=== PATIENT | female | born 2000 | race Two or more races ===

== ENCOUNTER 2022-04-26 21:57 | Emergency (ER) | payer OTHER ==
[~2022-04-26] VITALS: Ht 162.6 cm; Wt 58.2 kg
[2022-04-26 22:55] LABS: Urine Bacteria FEW /hpf (None Seen); Urine Blood Negative /uL (Negative); Urine Specific Gravity 1.005 (1.001-1.035); Urine WBC 2 /hpf (0 - 5)
[2022-04-27] MEDS ORDERED: METR500T PO ×2 (03:06→03:37)
[2022-04-27] MEDS ORDERED: PERCOT PO ×2 (03:06→03:37)
[2022-04-27] MEDS ORDERED: CIPR-173 PO ×2 (03:06→03:37)
[2022-04-27 03:39] VITALS: BP 100/63
[2022-04-28] MEDS ORDERED: ONDA-144 PO (09:55)
[2022-04-28] MEDS ORDERED: METR500T PO (09:55)
[2022-04-28] MEDS ORDERED: CEPH-509 PO (09:55)
== END 2022-04-27 03:46 | disposition home or self-care (01) ==
LOC: ER 21:57
DX: K52.9 Noninfective gastroenteritis and colitis, unspecified (principal)
CPT/HCPCS: 74176; 81001

== ENCOUNTER 2022-04-28 07:00 | Emergency (ER) | payer OTHER ==
[~2022-04-28] VITALS: Ht 162.6 cm; Wt 56.0 kg
[~2022-04-28 07:00] MED LIST: CIPR-173 PO; METR500T PO; PERCOT PO
[2022-04-28 08:07] LABS: Basophils # (auto) 0 10 ^3/uL (0-0.2); Basophils % (auto) 0.2 % (0.0-2.0); Eosinophils # (auto) 0 10 ^3/uL (0-0.8); Eosinophils % (auto) 0.3 % (0.0-7.0); Hematocrit 40.7 % (36.0-46.0); Hemoglobin 13.9 g/dL (12.2-16.2); Lymphocytes # (auto) 0.7 10 ^3/uL (0.4-5.4); Lymphocytes % (auto) 11.9 % (10.0-50.0); Mean Corpuscular Hemoglobin 28.5 pg (28.0-32.0); Mean Corpuscular Hgb Conc. 34.1 g/dL (32.0-36.0); Mean Corpuscular Volume 83.8 fL (80.0-100.0); Monocytes # (auto) 0.6 10 ^3/uL (0-1.3); Monocytes % (auto) 9.2 % (0.0-12.0); Neutrophils # (auto) 4.7 10 ^3/uL (1.6-8.6); Neutrophils % (auto) 78.4 % (37.0-80.0); Red Blood Cells 4.85 10^6/uL (4.0-5.20); Red Cell Distribution Width 13.3 % (11.8-14.3)
[2022-04-28 08:14] LABS: Urine Bacteria FEW /hpf (None Seen); Urine Blood Negative /uL (Negative); Urine Mucus FEW (None Seen); Urine Specific Gravity 1.021 (1.001-1.035); Urine WBC 2 /hpf (0 - 5)
[2022-04-28 08:24] LABS: Albumin 4.1 g/dL (3.4-5.0); Potassium 3.9 mmol/L (3.5-5.1)
[2022-04-28 08:28] LABS: BUN/Creatinine Ratio 7.9; Bilirubin, Total 1.5 mg/dL (0.2-1.0); Total Protein 7.6 g/dL (6.4-8.2)
[2022-04-28] MEDS ORDERED: METR500T PO (09:55)
[2022-04-28] MEDS ORDERED: CEPH-509 PO (09:55)
[2022-04-28] MEDS ORDERED: ONDA-144 PO (09:55)
[2022-04-28 11:10] VITALS: BP 100/59
== END 2022-04-28 09:55 | disposition home or self-care (01) ==
LOC: ER 07:00
DX: K52.9 Noninfective gastroenteritis and colitis, unspecified (principal); N20.0 Calculus of kidney; Z79.2 Long term (current) use of antibiotics; Z79.899 Other long term (current) drug therapy
CPT/HCPCS: 36415; 74176; 80053; 81001; 85025